=== PATIENT | female | born 1975 | race Two or more races ===

== ENCOUNTER 2016-05-18 15:59 | Emergency (ER) | payer SELFPAY ==
[~2016-05-18] VITALS: Ht 162.6 cm; Wt 63.5 kg
[2016-05-18 16:10] VITALS: BP 119/72
== END 2016-05-18 16:24 | disposition home or self-care (01) ==
LOC: ER 16:01
DX: Z00.8 Encounter for other general examination (principal); F17.210 Nicotine dependence, cigarettes, uncomplicated
CPT/HCPCS: 99283; A4606; Z7610